=== PATIENT | female | born 1945 | race Caucasian/White ===

== ENCOUNTER → 2016-05-31 | Outpatient (CLI) | payer MEDICARE, BC ==
[~2016-05-31] MED LIST: ACTOS15 MG PO; ADVAIR 250/28 DISKU1 IH; ADVAIR 250/28 DISKUS IH; ADVAIR IH; AMOXICILLIN 8751 TAB PO; ASPIRIN 81M81 MG/TA2 PO; CARDIZEM CD 24240 MG PO; CEPHALEXIN500 M1 PO; CETIRIZINE; COZAAR100 MG PO; DIABETA 2.5MG2.5 MG PO; DIABETA 5MG5 MG/TAB PO; FLONASE NASAL S16 GM NS; FLUTICASON0.05 MG/AC NS; FUROSEMIDE; GLUCOPHAGE XR500 M1 PO; INHALER; KLOR-CON 1010 MEQ PO; LASIX 20MG TABL20 MG PO; LOPRESSOR 225 MG/TAB PO; LOTENSIN10 MG PO; METFORMIN; METFORMIN HCL500 M1 PO; MICRO-K10 MEQ PO; MICRO-K8 MEQ PO; MICRONASE1.25 MG PO; MIRALAX PA17 GM/Dose PO; NASAL & SINUS D30 MG PO; NORCO 325 MG-51 TAB PO; NORCO 325 MG-7.1 TAB PO; PRILOSEC; PRILOSEC 20MG20 MG PO; PROAIR; PROAIR HFA0.09 MG/AC IH; ROXICODONE 55 MG/TAB PO; SENOKOT S 50 MG1 TAB PO; SINGULAIR; SINGULAIR 110 MG/TAB PO; SINGULAIR10 MG PO; TYLENOL 325MG325 MG PO; ZITHROMAX Z PA250 MG PO; ZOCOR; ZOCOR 10MG10 MG PO; ZYRTEC 10MG10 MG PO; benzapril
== END ==
LOC: SUN.DIA 09:30
DX: E11.65 Type 2 diabetes mellitus with hyperglycemia (principal); E66.9 Obesity, unspecified; Z68.35 Body mass index [BMI] 35.0-35.9, adult; Z71.3 Dietary counseling and surveillance; Z79.4 Long term (current) use of insulin; Z79.84 Long term (current) use of oral hypoglycemic drugs

== ENCOUNTER 2017-02-24 06:01 | Day surgery (SDC) | payer MEDICARE, BC ==
[~2017-02-24] VITALS: Ht 165.1 cm; Wt 98.9 kg
[2017-02-24 06:15] VITALS: BP 182/85; PULSE 79; TEMP 97.9
[2017-02-24] MEDS ORDERED: ALBUTEROL0.83 MG/ML IH (06:48)
[2017-02-24] MEDS ORDERED: B-121000 MCG PO (06:48)
[2017-02-24] MEDS ORDERED: REMERON 15M15 MG/TA1 PO (06:48)
[2017-02-24] MEDS ORDERED: EFFEXOR 3737.5 MG/TA PO (06:49)
[2017-02-24] MEDS ORDERED: INDERAL 10MG10 MG PO (06:49)
[2017-02-24] MEDS ORDERED: GLUCOTROL10 MG PO (06:50)
[2017-02-24] MEDS ORDERED: LEVEMIR100 U/ML SQ (06:51)
[2017-02-24] MEDS ORDERED: VICTOZA6 MG/ML SQ (06:52)
[2017-02-24 07:45] VITALS: BP 155/78; PULSE 70; TEMP 97.4
[2017-02-24 08:00] VITALS: BP 159/72; PULSE 66
[2017-02-24 08:15] VITALS: BP 151/71; PULSE 70
[2017-02-24 08:23] VITALS: BP 168/76; PULSE 67
== END 2017-02-24 08:30 | disposition home or self-care (01) ==
LOC: SDCO 06:01
DX: Z12.11 Encounter for screening for malignant neoplasm of colon (principal); K57.30 Diverticulosis of large intestine without perforation or abscess without bleeding; E11.9 Type 2 diabetes mellitus without complications; K21.9 Gastro-esophageal reflux disease without esophagitis; Z86.010 Personal history of colon polyps; Z90.710 Acquired absence of both cervix and uterus; Z98.51 Tubal ligation status; Z79.4 Long term (current) use of insulin
CPT/HCPCS: J2250; J2405; J3010; J7030

== ENCOUNTER → 2017-05-29 | Outpatient (CLI) | payer MEDICARE, BC ==
[~2017-05-29] MED LIST changes: +ALBUTEROL0.83 MG/ML IH; +B-121000 MCG PO; +EFFEXOR 3737.5 MG/TA PO; +GLUCOTROL10 MG PO; +INDERAL 10MG10 MG PO; +LEVEMIR100 U/ML SQ; +REMERON 15M15 MG/TA1 PO; +VICTOZA6 MG/ML SQ
== END ==
LOC: MC.RAD 13:20
DX: Z12.31 Encounter for screening mammogram for malignant neoplasm of breast (principal); N63.20 Unspecified lump in the left breast, unspecified quadrant

== ENCOUNTER → 2017-06-02 | Outpatient (CLI) | payer MEDICARE, BC | LOC: MC.RAD 10:21 | DX: N63.20 Unspecified lump in the left breast, unspecified quadrant (principal) ==

== ENCOUNTER → 2017-06-09 | Outpatient (CLI) | payer MEDICARE, BC | LOC: MC.RAD 10:14 | DX: N63.20 Unspecified lump in the left breast, unspecified quadrant (principal) ==

== ENCOUNTER → 2018-03-07 | Outpatient (CLI) | payer MEDICARE, BC ==
[~2018-03-07] MED LIST changes: +CARTIA XT240 MG PO; -EFFEXOR 3737.5 MG/TA PO; +EFFEXOR XR37.5 MG/CA PO; +LASIX 40MG TABL40 MG PO; +PREDNISONE10 MG PO; +RT SPIRIVA18 MCG IH
== END ==
LOC: MC.RAD 09:22
DX: Z09 Encounter for follow-up examination after completed treatment for conditions other than malignant neoplasm (principal); Z86.018 Personal history of other benign neoplasm; Z98.890 Other specified postprocedural states

== ENCOUNTER → 2018-08-06 | Outpatient (CLI) | payer MEDICARE, BC | LOC: MC.RAD 11:00 | DX: Z12.31 Encounter for screening mammogram for malignant neoplasm of breast (principal); R92.0 Mammographic microcalcification found on diagnostic imaging of breast ==

== ENCOUNTER 2021-02-12 12:25 | Outpatient (CLI) | payer MEDICARE, BC ==
[~2021-02-12] VITALS: Ht 165.1 cm; Wt 92.7 kg
[2021-02-12 13:30] VITALS: BP 155/100; PULSE 66
[2021-02-12 14:00] VITALS: BP 137/73; PULSE 72
[2021-02-12 14:15] VITALS: BP 128/63; PULSE 68
[2021-02-12 14:30] VITALS: BP 138/60; PULSE 75
[2021-02-12 15:00] VITALS: BP 122/67; PULSE 74
== END 2021-02-12 15:17 ==
LOC: EUO 12:25
DX: E11.9 Type 2 diabetes mellitus without complications (principal); J44.9 Chronic obstructive pulmonary disease, unspecified
CPT/HCPCS: M0243; Q0244

== ENCOUNTER → 2021-09-03 | Outpatient (CLI) | payer MEDICARE, BC | LOC: MC.RAD 09:15 | DX: Z12.31 Encounter for screening mammogram for malignant neoplasm of breast (principal) ==

== ENCOUNTER 2022-08-20 13:13 | Inpatient (IN) | payer MEDICARE, BC ==
[~2022-08-20] VITALS: Ht 165.1 cm; Wt 99.5 kg
[2022-08-20 13:57] LABS: BASO # 0.1 K/mm3 (0.0-0.2); BASO % 0.5 % (0.0-2.0); EOS # 0.2 K/mm3 (0.0-0.7); EOS % 2.1 % (0.0-4.0); GRAN # 8.2 K/mm3 (1.4-6.5); GRAN % 72.5 % (42.2-75.2); HEMATOCRIT 37.1 % (37.0-47.0); HEMOGLOBIN 11.8 g/dl (12.5-16.0); LYMPH % 17.3 % (20.0-51.0); MEAN CELL VOLUME 81 fl (80.0-100.0); MEAN CORPUSCULAR HEMOGLOBIN 26 pg (27-31); MEAN CORPUSCULAR HGB CONC 32 g/dl (33.0-37.0); MEAN PLATELET VOLUME 10.1 fl (7.4-10.4); MONO # 0.8 K/mm3 (0.1-0.6); MONO % 6.8 % (1.7-9.3); PLATELET COUNT 258 K/mm3 (130-400); RED BLOOD COUNT 4.56 M/mm3 (4.10-5.30); REDCELL DISTRIBUTION WIDTH-CV 15.9 % (11.5-14.5)
[2022-08-20 14:05] LABS: ALBUMIN 3.7 gm/dL (3.4-4.8); CALCIUM 9.9 mg/dL (8.4-10.2); CREATININE, serum 1.04 mg/dL (0.57-1.11); POTASSIUM 4.1 mmol/L (3.5-4.5)
[2022-08-20 14:20] LABS: BILIRUBIN,TOTAL 0.5 mg/dL (0.2-1.2)
[2022-08-20 14:21] LABS: TROPONIN-I 0.043 ng/mL (0.00-0.033)
[2022-08-20 14:21] LABS: ARTERIAL BLD GAS TCO2 CT 27.2; ARTERIAL BLOOD GAS BASE EXCESS 2.2 (-2-2); ARTERIAL BLOOD GAS PCO2 37.6 mmHg (35-45); ARTERIAL BLOOD GAS PO2 74.7 mmHg (80-100); ARTERIAL BLOOD GAS pH 7.46 (7.35-7.45)
[2022-08-20] MEDS ORDERED: DEMADEX 20MG20 M1 PO (14:51)
[2022-08-20] MEDS ORDERED: NOVOLOG FLEX100 U/ML SQ (14:52)
[2022-08-20] MEDS ORDERED: HYGROTON 2525 MG/TAB (14:53)
[2022-08-20] MEDS ORDERED: VICTOZA6 MG/ML SQ (14:54)
[2022-08-20] MEDS ORDERED: TRESIBA FL100 UNIT/1 SQ (14:54)
[2022-08-20] MEDS ORDERED: ZOCOR 10MG10 MG PO (14:55)
[2022-08-20] MEDS ORDERED: REMERON 15M15 MG/TA1 PO (14:55)
[2022-08-20] MEDS ORDERED: SINGULAIR 110 MG/TAB PO (14:55)
[2022-08-20] MEDS ORDERED: COZAAR100 MG PO ×2 (14:56)
[2022-08-20] MEDS ORDERED: EFFEXOR XR37.5 MG/CA PO (14:56)
[2022-08-20] MEDS ORDERED: K-DUR20 MEQ PO (14:56)
[2022-08-20] MEDS ORDERED: TAZTIA240 (14:57)
[2022-08-20] MEDS ORDERED: INDERAL 10MG10 MG PO (14:58)
[2022-08-20] MEDS ORDERED: RT SPIRIVA18 MCG IH (14:59)
[2022-08-20] MEDS ORDERED: PRILOSEC 20MG20 MG PO (14:59)
[2022-08-20] MEDS ORDERED: CELEBREX 1100 MG/CAP PO (14:59)
[2022-08-20] MEDS ORDERED: MYRBETR50MG PO (15:00)
[2022-08-20] MEDS ORDERED: ALBUTEROL0.83 MG/ML IH (15:00)
[2022-08-20] MEDS ORDERED: VITAMIN D31000 IU PO (15:01)
[2022-08-20 15:06] LABS: COLLECTION METHOD CLEAN CATCH
[2022-08-20 15:15] LABS: SQUAMOUS EPITHELIAL None Seen /hpf (0-10); URINE BACTERIA None Seen /hpf (NONE SEEN); URINE RBC 0-2 /hpf (0-2)
[2022-08-20 15:20] LABS: URINE APPEARANCE Hazy (CLEAR/HAZY); URINE BLOOD Negative (NEGATIVE); URINE COLOR Yellow (YELLOW); URINE GLUCOSE Negative (NEGATIVE); URINE KETONE Negative (NEGATIVE); URINE NITRATE Negative (NEGATIVE); URINE PROTEIN(semi-quant) Negative (NEGATIVE); URINE UROBILINOGEN 0.2 (NEGATIVE)
--- NOTE | 2022-08-20 17:55 | NUR ---
Pt arrived to room 316 via stretcher from ER. Oriented to room and policy. VS taken and WNL.
[2022-08-20 18:04] VITALS: BP 140/63; PULSE 66; TEMP 98
[2022-08-20] MEDS ORDERED: MIRALAX PA17 GM/Dose PO (18:15)
[2022-08-20 20:02] VITALS: BP 143/57; PULSE 67; TEMP 97.7
[2022-08-20 23:51] VITALS: BP 120/57; PULSE 62; TEMP 97.5
--- NOTE | 2022-08-21 04:44 | NUR ---
Admission assessment performed as noted. Pt is in normal sinus rhythm and is monitored on telemetry. She is currently on 3 L O2. Her baseline is 2 L with her CPAP at night. Lab called with a critical troponin of 0.053 at 2301. The lab had attempted collection at 2000 but was unable to get a sample. KIMBERLY Beltran was notified. She would like to recheck the troponin with the other labs at 0500. She also gave orders for glucose checks and sliding scale insulin. Lasix was given as ordered and she has been voiding throughout the night. Bed in lowest position and call light within reach.
[2022-08-21 04:45] VITALS: BP 136/68; PULSE 64; TEMP 97.7
[2022-08-21 06:39] LABS: BASO # 0.1 K/mm3 (0.0-0.2); BASO % 0.7 % (0.0-2.0); EOS # 0.3 K/mm3 (0.0-0.7); EOS % 3.1 % (0.0-4.0); GRAN # 6.1 K/mm3 (1.4-6.5); GRAN % 69.8 % (42.2-75.2); HEMOGLOBIN 11.3 g/dl (12.5-16.0); LYMPH # 1.6 K/mm3 (1.2-3.4); LYMPH % 18.4 % (20.0-51.0); MEAN CELL VOLUME 79 fl (80.0-100.0); MEAN CORPUSCULAR HEMOGLOBIN 26 pg (27-31); MEAN CORPUSCULAR HGB CONC 33 g/dl (33.0-37.0); MONO # 0.6 K/mm3 (0.1-0.6); MONO % 7.4 % (1.7-9.3); PLATELET COUNT 225 K/mm3 (130-400); RED BLOOD COUNT 4.35 M/mm3 (4.10-5.30); REDCELL DISTRIBUTION WIDTH-CV 15.9 % (11.5-14.5)
[2022-08-21 06:42] LABS: HEMATOCRIT 34.5 % (37.0-47.0)
[2022-08-21 06:56] LABS: CALCIUM 9.9 mg/dL (8.4-10.2); CREATININE, serum 1.15 mg/dL (0.57-1.11); POTASSIUM 3.9 mmol/L (3.5-4.5)
[2022-08-21 07:11] LABS: TROPONIN-I 0.041 ng/mL (0.00-0.033)
[2022-08-21 07:42] VITALS: BP 115/83; PULSE 71; TEMP 97.9
--- NOTE | 2022-08-21 08:45 | NUR ---
Spoke with RT Justina to clarify if we have CPAPs available as patient uses one at night. Informed they are available-will discuss with Dr Velez and get new orders. Justina states she will inform nights of need.
[2022-08-21 11:15] VITALS: BP 129/74; PULSE 75; TEMP 97.8
--- NOTE | 2022-08-21 11:25 | NUR ---
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 Through life review, Campus Recruiting Coordinator learned that Patient lives in [place] and is a member of the [employer] there. Campus Recruiting Coordinator offered to call Patient's Accountant Property, which she agreed to happily. No answer. Campus Recruiting Coordinator left a voicemail. Accountant Property returned call before Campus Recruiting Coordinator left the room. Patient was able to speak with her Accountant Property. Accountant Property will call her again after restorationism services. Accountant Property will let other members of the orthodox know that Patient is in hospital. They will be praying for her. Campus Recruiting Coordinator prayed for Patient.
--- NOTE | 2022-08-21 11:26 | NUR ---
O2 sat 96% on 3L/NC. Oxygen flow decreased to 2L/NC.
[2022-08-21 16:10] VITALS: BP 135/55; PULSE 65; TEMP 98.2
--- NOTE | 2022-08-21 16:14 | NUR ---
Patient had an uneventful day. VS remained stable. Denied chest pain/nausea. Short of breath at rest. Currently on O2@2L/NC. Slowly being weaned down per dr order. Plan for echo tomorrow morning. SR on TELE. Left AC 20g flushes without difficulty. Strict I/O being recorded. Denies current questions/concerns. Will monitor.
--- NOTE | 2022-08-21 16:25 | NUR ---
SW met with pt for intake. Pt cofirms living in [place]. Pt reports NOK is Sugey Reyes her daughter who lives 5 miles from her in [place] and phone number is [phone]. Pt reports this is her DPO[employer] agent also. Pt denied DME at home and reports 2L of oxygen at night from [facility]. Pt reports PCP is MANDO and insurance is medicare and [facility]. Pt reports pharmacy is and has no issues. DC plan home HH if needed.
[2022-08-21 20:00] VITALS: BP 136/62; PULSE 76; TEMP 98.1
[2022-08-22] VITALS: BP 117/83; PULSE 50; TEMP 98.5
[2022-08-22 04:00] VITALS: BP 100/64; PULSE 55; TEMP 98.7
[2022-08-22 06:58] LABS: BASO # 0.1 K/mm3 (0.0-0.2); BASO % 0.7 % (0.0-2.0); EOS # 0.3 K/mm3 (0.0-0.7); EOS % 4.5 % (0.0-4.0); GRAN # 4.7 K/mm3 (1.4-6.5); GRAN % 61.1 % (42.2-75.2); HEMOGLOBIN 11.2 g/dl (12.5-16.0); LYMPH # 1.9 K/mm3 (1.2-3.4); LYMPH % 24.5 % (20.0-51.0); MEAN CELL VOLUME 79 fl (80.0-100.0); MEAN CORPUSCULAR HEMOGLOBIN 26 pg (27-31); MEAN CORPUSCULAR HGB CONC 33 g/dl (33.0-37.0); MEAN PLATELET VOLUME 10.4 fl (7.4-10.4); MONO # 0.6 K/mm3 (0.1-0.6); MONO % 8.4 % (1.7-9.3); PLATELET COUNT 223 K/mm3 (130-400); RED BLOOD COUNT 4.25 M/mm3 (4.10-5.30); REDCELL DISTRIBUTION WIDTH-CV 15.9 % (11.5-14.5)
[2022-08-22 07:00] LABS: HEMATOCRIT 33.6 % (37.0-47.0)
[2022-08-22 07:15] LABS: CALCIUM 9.5 mg/dL (8.4-10.2); CREATININE, serum 1.4 mg/dL (0.57-1.11); POTASSIUM 3.6 mmol/L (3.5-4.5)
[2022-08-22 07:27] VITALS: BP 134/60; PULSE 59; TEMP 97.8
--- NOTE | 2022-08-22 08:27 | NUR ---
Pt awake and laying in bed. Morning medications administered by ASIF Adrian. Shift assessment completed. Telemetry remains on. Pt on 2L per NC. INT in L AC patent, no edema or redness. Ultrasound entering to conduct ECHO. Call light within reach.
[2022-08-22] MEDS ORDERED: OXYGEN (10:47)
[2022-08-22 11:29] VITALS: BP 138/57; PULSE 62; TEMP 97.5
--- NOTE | 2022-08-22 15:26 | NUR ---
INT in L AC discontinued with catheter tip intact. Pt discharge instructions given. All questions answered. Pt waiting for ride.
--- NOTE | 2022-08-22 15:39 | NUR ---
Pt escorted out of facility at this time.
--- NOTE | 2022-08-22 15:48 | NUR ---
Manager Civil met with patient to discuss recommendation for home health. Patient is agreeable to this and reviewed Medicare.gov list of agencies SW provided. Patient selected [facility]. Patient also has home oxygen through [facility]. RT is at bedside and advised she will need oxygen continuously, including for transport. Patient is adamant that she does not want a tank delivered and will be fine for the ride home. SW offered multiple times to order tank, however patient declined. ALO faxed updated notes and prescription to [facility]. ALO contacted Alan at [facility] and faxed referral, then discharge orders. Discharge Plan: [facility]
== END 2022-08-22 15:39 | disposition home or self-care (01) | DRG 291 ==
LOC: COL.ER 13:13 → MEDICAL 14:35
PROVIDERS: Physician Assistant; ADMIT Student in an Organized Health Care Education/Training Program
PROC: 5A09357 Assistance with Respiratory Ventilation, Less than 24 Consecutive Hours, Continuous Positive Airway Pressure (ICD-10-PCS; principal; 2022-08-21)
DX: I11.0 Hypertensive heart disease with heart failure (principal); I50.33 Acute on chronic diastolic (congestive) heart failure; J96.01 Acute respiratory failure with hypoxia; N17.9 Acute kidney failure, unspecified; J44.9 Chronic obstructive pulmonary disease, unspecified; G47.33 Obstructive sleep apnea (adult) (pediatric); K59.00 Constipation, unspecified; J45.40 Moderate persistent asthma, uncomplicated; G43.909 Migraine, unspecified, not intractable, without status migrainosus; E66.9 Obesity, unspecified; Z20.822 Contact with and (suspected) exposure to COVID-19; E78.5 Hyperlipidemia, unspecified; K21.9 Gastro-esophageal reflux disease without esophagitis; F32.A Depression, unspecified; I44.0 Atrioventricular block, first degree; D64.9 Anemia, unspecified; B00.9 Herpesviral infection, unspecified; E11.9 Type 2 diabetes mellitus without complications; I34.0 Nonrheumatic mitral (valve) insufficiency; Z86.16 Personal history of COVID-19; Z90.710 Acquired absence of both cervix and uterus; Z79.4 Long term (current) use of insulin; Z79.899 Other long term (current) drug therapy; Z68.36 Body mass index [BMI] 36.0-36.9, adult; Z23 Encounter for immunization
CPT/HCPCS: J0696; J1650; J1815; J1940